=== PATIENT | male | born 1950 | race Caucasian/White ===

== ENCOUNTER 2016-08-15 15:02 | Emergency (ER) | payer BC, MEDICARE | END 2016-08-15 20:09 | disposition home or self-care (01) | LOC: ER 15:02 | DX: L03.116 Cellulitis of left lower limb (principal); E11.9 Type 2 diabetes mellitus without complications; Z79.4 Long term (current) use of insulin; I10 Essential (primary) hypertension; E06.3 Autoimmune thyroiditis; Z89.412 Acquired absence of left great toe | CPT/HCPCS: 36415; 80053; 85025; 85652; 86141; 87071; 87077; 87186; 93971 ==

== ENCOUNTER 2016-08-23 06:18 | Observation (INO) | payer BC, MEDICARE ==
[2016-08-18 10:35] VITALS: BMI 33.7
[~2016-08-23] VITALS: Ht 185.4 cm; Wt 113.4 kg
[2016-08-23] VITALS (15 sets, daily range): BP systolic 126–162; RESP 12–20; TEMP 96.8–98.4; Ht 185.4 cm; Wt 113.4 kg
[~2016-08-23 06:18] MED LIST: VANCOMYCIN 1,500 MG in SODIUM CHLORIDE 0.9% 250 ML IV ONE
[2016-08-23] MEDS ORDERED: LACT RINGERS 1,000 ML IV SCH (06:45)
[2016-08-23] MEDS ORDERED: METOCLOPRAMIDE 10 MG/2 ML VIAL IV PUSH ONE (06:45)
[2016-08-23] MEDS ORDERED: LIDOCAINE 1% BUFFERED 1 ML SYR INTRADERM PRN (06:45)
[2016-08-23] MEDS ORDERED: MIDAZOLAM 2 MG/2 ML INJ IV ONE ×2 (06:45→11:12)
[2016-08-23] MEDS ORDERED: MORPHINE 2 MG/ML SYR IV PRN ×2 (07:15→09:50)
[2016-08-23] MEDS ORDERED: OXYCODONE 5 MG TAB PO PRN (07:15)
[2016-08-23] MEDS ORDERED: MORPHINE 4 MG/ML SYR IV PRN (07:15)
[2016-08-23] MEDS ORDERED: DILAUDID 1 MG/ML AMP IV PRN (07:15)
[2016-08-23] MEDS ORDERED: ONDANSETRON 4 MG VIAL IV PRN ×2 (07:15→09:50)
[2016-08-23] MEDS ORDERED: MEPERIDINE 25 MG/ML IV PRN (07:15)
[2016-08-23] MEDS ORDERED: OXYCODONE/APAP 5/325 TAB PO PRN (09:50)
[2016-08-23] MEDS ORDERED: SALINE FLUSH 10 ML FLUSH PRN (09:50)
[2016-08-23] MEDS ORDERED: PHARMACY TO DOSE VANCOMYCIN IV SCH (09:50)
[2016-08-23] MEDS ORDERED: BACITRACIN 50,000 UNITS INJ IRRIG ONE (11:10)
[2016-08-23] MEDS ORDERED: LIDOCAINE 2% SYR 5 ML IV ONE (11:12)
[2016-08-23] MEDS ORDERED: PROPOFOL 20 ML VIAL IV ONE (11:12)
[2016-08-23] MEDS ORDERED: KETAMINE INJ 50 MG/ML VIAL IV ONE (11:12)
[2016-08-23] MEDS ORDERED: FENTANYL 100 MCG/2 ML AMP IV ONE (11:12)
[2016-08-23] MEDS ORDERED: PROPOFOL 50ML VIAL IV ONE (11:12)
[2016-08-23] MEDS: amLODIPine 5 MG TAB PO SCH (12:01)
[2016-08-23] MEDS: METOPROLOL TART 50 MG TAB PO SCH ×2 (12:02→22:09)
[2016-08-23] MEDS: PIPERACIL/TAZO 3.375GM/50ML 50 ML IV SCH ×2 (12:19→17:51)
[2016-08-23] MEDS: Losartan 50 MG TAB PO SCH (12:19)
[2016-08-23] MEDS: Aspirin 325 MG TAB PO SCH (12:19)
[2016-08-23] MEDS ORDERED: VANCOMYCIN 1,500 MG in SODIUM CHLORIDE 0.9% 250 ML IV SCH (19:00)
[2016-08-23] MEDS: SALINE FLUSH 10 ML FLUSH SCH (22:10)
[2016-08-24] MEDS: PIPERACIL/TAZO 3.375GM/50ML 50 ML IV SCH ×3 (00:26→17:00)
[2016-08-24] MEDS: SODIUM CHLORIDE 0.9% FLUSH BAG 500 ML IV SCH (06:33)
[2016-08-24 07:26] VITALS: BP_SYST 170; RESP 18; TEMP 97.8
[2016-08-24] MEDS ORDERED: GLUCAGON 1 MG VIAL IM PRN (08:50)
[2016-08-24] MEDS ORDERED: DEXTROSE 50% SYRINGE 50 ML IV PRN (08:50)
[2016-08-24] MEDS: Aspirin 325 MG TAB PO SCH (09:19)
[2016-08-24] MEDS: SALINE FLUSH 10 ML FLUSH SCH ×2 (09:19→19:45)
[2016-08-24] MEDS: Losartan 50 MG TAB PO SCH (09:19)
[2016-08-24] MEDS: amLODIPine 5 MG TAB PO SCH (09:20)
[2016-08-24] MEDS: METOPROLOL TART 50 MG TAB PO SCH ×2 (09:20→19:45)
[2016-08-24 11:25] VITALS: BP_SYST 170; RESP 18; TEMP 97.8
[2016-08-24] MEDS: VANCOMYCIN 1,500 MG in SODIUM CHLORIDE 0.9% 250 ML IV SCH ×2 (12:01→22:33)
[2016-08-24] MEDS ORDERED: LEVEMIR INSULIN SUBQ ONE (13:30)
[2016-08-24 14:57] VITALS: BP_SYST 148; RESP 16; TEMP 97.8
[2016-08-24 19:51] VITALS: BP_SYST 158; RESP 20; TEMP 98
[2016-08-25] MEDS: PIPERACIL/TAZO 3.375GM/50ML 50 ML IV SCH ×2 (00:12→09:05)
[2016-08-25 00:22] VITALS: BP_SYST 132; RESP 24; TEMP 98.7
[2016-08-25 04:56] VITALS: BP_SYST 142; RESP 20; TEMP 98.3
[2016-08-25] MEDS: SODIUM CHLORIDE 0.9% FLUSH BAG 500 ML IV SCH (05:04)
[2016-08-25 08:00] VITALS: BP_SYST 130; RESP 20; TEMP 98.6
[2016-08-25] MEDS ORDERED: LEVEMIR INSULIN SUBQ SCH (08:00)
[2016-08-25] MEDS: Losartan 50 MG TAB PO SCH (09:06)
[2016-08-25] MEDS: Aspirin 325 MG TAB PO SCH (09:06)
[2016-08-25] MEDS: SALINE FLUSH 10 ML FLUSH SCH (09:06)
[2016-08-25] MEDS: METOPROLOL TART 50 MG TAB PO SCH (09:06)
[2016-08-25] MEDS: amLODIPine 5 MG TAB PO SCH (09:06)
[2016-08-25] MEDS: VANCOMYCIN 1,500 MG in SODIUM CHLORIDE 0.9% 250 ML IV SCH (10:00)
[2016-08-25] MEDS ORDERED: LEVOFLOXACIN 750 MG TAB PO SCH (10:20)
[2016-08-25 11:17] VITALS: BP_SYST 130; RESP 20; TEMP 98.6
== END 2016-08-25 10:40 | disposition home or self-care (01) ==
LOC: ENRESERVDT → ENRESERVTM → SURG 06:18 → SDS 09:47 → ENPENDDIS 09:47 → 5THE 10:31
PROVIDERS: ADMIT Surgery Vascular Surgery; ATTEND Surgery Vascular Surgery
DX: E11.621 Type 2 diabetes mellitus with foot ulcer (principal); L97.529 Non-pressure chronic ulcer of other part of left foot with unspecified severity; E11.69 Type 2 diabetes mellitus with other specified complication; M86.672 Other chronic osteomyelitis, left ankle and foot; Z79.4 Long term (current) use of insulin; I10 Essential (primary) hypertension; Z87.891 Personal history of nicotine dependence
CPT/HCPCS: 80048; 80202; 82947; 85025; 87071; 87077; 87186; 87205; 88304; 88311